=== PATIENT | male | born 1975 | race Caucasian/White ===

== ENCOUNTER 2019-06-03 05:52 | Day surgery (SDC) | payer BC ==
[~2019-06-03] VITALS: Ht 175.3 cm; Wt 95.5 kg
[2019-06-03 06:12] LABS: BASOPHILS 0.2 % (0-2); EOSINOPHILS 0.7 % (0-7); HEMATOCRIT 45.2 % (42.0-54.0); HEMOGLOBIN 15.3 g/dL (13.5-17.5); IMMATURE GRANULOCYTES 0.2 % (0-5); LYMPHOCYTES 45.8 % (15-50); MCH 30.4 pg (26.0-34.0); MCHC 33.8 g/dL (31.0-37.0); MCV 89.7 fL (80.0-100.0); MEAN PLATELET VOLUME 9.1 fL (7.4-10.4); MONOCYTES 13.3 % (2-11); NEUTROPHILS 39.8 % (40-80); PLATELET COUNT 210 10x3/uL (130-400); RBC 5.04 10x6/uL (4.20-6.10); RDW 13.1 % (11.5-14.5); WBC 5.4 10x3/uL (4.8-10.8)
[2019-06-03 06:29] LABS: CALC OSMOLALITY 288 mosm/kg (275-300); CALCIUM 8.8 mg/dL (8.5-10.1); CARBON DIOXIDE 28.6 mmol/L (21.0-32.0); CHLORIDE - SERUM 106 mmol/L (98-107); CREATININE - SERUM 1.1 mg/dL (0.6-1.3); GLUCOSE 101 mg/dL (74-106); POTASSIUM - SERUM 4.2 mmol/L (3.5-5.1); SODIUM 142 mmol/L (136-145); UREA NITROGEN 29 mg/dL (7-18); eGFR NON AFRICAN AMERICAN 78 mL/min (90-120)
[2019-06-03] MEDS ORDERED: BENICAR20 MG PO (06:36)
[2019-06-03 06:38] VITALS: Ht 175.3 cm; Wt 95.5 kg
--- NOTE | 2019-06-03 09:09 | NUR ---
0849 IV DC'D. CATHETER TIP INTACT. NO BLEEDING AT SITE. BANDAID APPLIED.
--- NOTE | 2019-06-04 07:42 | OP ---
PATIENT NAME: INDIRA GREEN MEDICAL RECORD: [id number] :75 LOCATION:[facility] ADMISSION DATE: SURGEON: NAYELI PORTER DO DATE OF OPERATION: 06/03/2019 PROCEDURE: EGD with biopsies. INDICATIONS FOR PROCEDURE: GERD. SCOPE: Olympus video gastroscope. MEDICATIONS: Propofol 220 mg IV per anesthesia. ESTIMATED BLOOD LOSS: Minimal. COMPLICATIONS: None. FINDINGS: Informed consent was given. The patient was made comfortable with the above medication. After reaching an adequate level of sedation by slow IV push, the patient was placed on his left side. The endoscope was advanced under direct visualization through the mouth to the second portion of the duodenum. The upper, middle, and lower thirds of the esophagus all appeared normal. At the GE junction, there were minor changes or reflux consistent with LA class A reflux-induced esophagitis. Cold forceps biopsies were taken from the squamocolumnar junction to rule out the presence of Mejia's mucosa. The endoscope was advanced beyond the GE junction into the stomach and retroflexed to view the cardia and fundus, which appeared normal. Throughout the body of the stomach as well as the antrum, there were patchy areas of erythema and granularity consistent with mild gastritis. Random cold forceps biopsies were taken from the antrum to submit for histopathology and to rule out the presence of H. pylori. The endoscope was advanced beyond the pylorus into the duodenum. Throughout the bulb and second portion of the duodenum there was some erythema and granularity consistent with mild duodenitis. Cold forceps biopsies were taken to submit for histopathology and to rule out other pathology such as celiac disease. The endoscope was withdrawn from the patient. The patient tolerated the procedure well and there were no complications. IMPRESSION: 1. LA class A reflux-induced esophagitis. 2. Mild gastritis in a patchy distribution. 3. Mild duodenitis in a patchy distribution. PLAN AND RECOMMENDATIONS: 1. Discharge home when recovery parameters are met. 2. Follow up biopsy specimen results. 3. GERD diet and reflux precautions. 4. Continue as needed antacids for flares of reflux and heartburn. 5. Notify [facility] if symptoms worsen or fail to improve. 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
== END 2019-06-03 09:05 | disposition home or self-care (01) ==
LOC: D.OPS 05:52
PROVIDERS: Anesthesiology; ATTEND Internal Medicine Gastroenterology
DX: K21.9 Gastro-esophageal reflux disease without esophagitis (principal)